=== PATIENT | female | born 1980 | race Caucasian/White ===

== ENCOUNTER 2017-08-09 17:22 | Emergency (ER) | payer SELFPAY, MEDICAID ==
[2017-08-09] MEDS: METHOCARBAMOL 500 MG TAB PO (21:04)
[2017-08-09] MEDS: IBUPROFEN 600 MG TAB PO (21:05)
== END 2017-08-09 22:18 | disposition home or self-care (01) ==
LOC: M ED 17:22
DX: S30.0XXA Contusion of lower back and pelvis, initial encounter (principal); M25.571 Pain in right ankle and joints of right foot; W00.0XXA Fall on same level due to ice and snow, initial encounter; Y92.89 Other specified places as the place of occurrence of the external cause; K21.9 Gastro-esophageal reflux disease without esophagitis; F41.9 Anxiety disorder, unspecified; Z79.899 Other long term (current) drug therapy
CPT/HCPCS: 73610